=== PATIENT | male | born 1990 | race Caucasian/White ===

== ENCOUNTER 2020-05-08 08:01 | Emergency (ER) | payer OTHER, SELFPAY ==
[2020-05-08 08:07] VITALS: BP 127/77; BP 132/92; PULSE 81; PULSE 90; RESP 18; TEMP 36.7; O2SAT 95; BMI 45.0
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
[2020-05-08] MEDS: Cyclobenzaprine HCl 10 MG TABLET PO (08:25)
[2020-05-08 09:55] VITALS: BP 114/70; PULSE 84; RESP 16; O2SAT 98
== END 2020-05-08 09:58 | disposition home or self-care (01) ==
LOC: HO.ED 08:38
PROVIDERS: Emergency Provider Emergency Medicine
DX: S00.81XA Abrasion of other part of head, initial encounter (principal); S09.90XA Unspecified injury of head, initial encounter; S13.4XXA Sprain of ligaments of cervical spine, initial encounter; V43.62XA Car passenger injured in collision with other type car in traffic accident, initial encounter; Y93.89 Activity, other specified; Y92.414 Local residential or business street as the place of occurrence of the external cause; Y99.9 Unspecified external cause status
CPT/HCPCS: 70450; 71045; 72125; 99284

== ENCOUNTER 2020-07-31 08:44 | Outpatient (REF) | payer OTHER, SELFPAY | END 2020-07-31 08:45 | disposition home or self-care (01) | LOC: HO.LAB 08:44 | PROVIDERS: Visit Provider Internal Medicine | DX: Z20.822 Contact with and (suspected) exposure to COVID-19 (principal) | CPT/HCPCS: 36415; C9803; U0003; U0005 ==

== ENCOUNTER 2020-12-30 15:07 | Emergency (ER) | payer SELFPAY ==
--- NOTE | ~2020-12-30 | XR_ITS ---
EXAMINATION: XR FOOT, LEFT CLINICAL INFORMATION: Left foot pain. COMPARISON: None TECHNIQUE: 3 views of the left foot. FINDINGS: There is no fracture. No dislocation. No focal bone lesion or abnormal periosteal reaction. The joint spaces are normal. There is no soft tissue abnormality. There is a prominent contour of the posterior superior calcaneus, Latisha's deformity. No thickening of the Achilles tendon however is evident. There are small calcifications at the Achilles tendon insertion of the posterior calcaneus. XR/XR foot LT 2V IMPRESSION: 1. No acute abnormality. 2. Latisha's deformity of the calcaneus.
[2020-12-30 16:35] VITALS: BP 156/96; PULSE 77; RESP 18; TEMP 36.8; O2SAT 97; BMI 48.6
--- NOTE | 2020-12-30 17:02 | ED.LOWEXIN ---
HPI - Extremity Injury (Lower) General Chief Complaint: Extremity Injury, Lower Stated Complaint: feet pain Source: patient Mode of arrival: ambulatory Limitations: no limitations History of Present Illness HPI Narrative: 30-year-old male presents with left-sided foot pain for several days. States that it is difficult for him to bear weight, and that he has been limping. He did have right-sided foot pain for several weeks prior to this. He does have a reddened spot at the great toe hallux. He is morbidly obese, has not seen a medical provider in over 2 years since he moved from [place] to [place]. Does not report any other concerning symptoms. He does not report any injuries or falls, wounds, chest pain or pressure, palpitations, shortness of breath, shortness breath on exertion, abdominal pain, abdominal distention, fevers, chills, dysuria, hematuria, nausea, vomiting, diarrhea, or constipation. MD complaint: foot injury Onset (ago): day(s) Type of Injury: unknown Place: home Severity: moderate Severity scale (1-10): 7 Exacerbating factors: nothing Associated symptoms: swelling and able to partially bear weight Other symptoms: none Related Data Previous Rx's Medication Instructions Recorded cyclobenzaprine 10 mg tablet 10 mg PO TID PRN #14 tab 05/08/20 ibuprofen 600 mg tablet 600 mg PO Q6H PRN #30 tab 05/08/20 lidocaine 4 % topical patch 1 patch TOPICAL DAILY PRN #10 ea 05/08/20 ondansetron 4 mg disintegrating 4 mg PO Q8H PRN #20 tab 05/08/20 tablet prednisone 20 mg tablet 40 mg PO DAILY 5 Days #10 tab 12/30/20 Allergies Allergy/AdvReac Type Severity Reaction Status Date / Time Penicillins [PENICILLINS] Allergy Unknown SWELLING Verified 05/08/20 08:23 AND RASH PEANUT BUTTER Allergy Unknown HIVES Uncoded 02/15/20 17:25 SEAFOOD Allergy Unknown SWELLING Uncoded 02/15/20 17:25 AND RASH Review of Systems Review of Systems: Constitutional: No Fever, No Chills ENT/Mouth: No Ear Pain, No Hoarseness, No sore throat Eyes: No Eye Pain, No Swelling, No Redness, No Foreign Body Cardiovascular: No Chest Pain, No SOB Respiratory: No Cough, No Dyspnea Gastrointestinal: No Nausea, No Vomiting, No Diarrhea, No abdominal Pain Genitourinary: No Dysuria, No Hematuria Musculoskeletal: positive foot pain, No Myalgias, No Joint Swelling Skin: No Skin lacerations, No rash Neuro: No Weakness, No Numbness, No Paresthesias, No Loss of Consciousness, No Dizziness, No Headache Psych: No Anxiety/Panic, No Depression Heme/Lymph: no easy bruising, no Lymphadenopathy Endocrine: No Polyuria, No Polydipsia PMFSH Past Medical History Attestation statement: The following information was validated with the patient. Source: old records reviewed Medical History Asthma Social History Social History Substance Use Type: Marijuana Advance Directives: No Advance Directives Information Provided: No Physical Exam Vital Signs: Vital Signs: Last Vital Signs Temp 98.3 F 12/30/20 16:35 Pulse 70 12/30/20 18:55 Resp 18 12/30/20 18:55 BP 106/62 12/30/20 18:55 Pulse Ox 97 12/30/20 18:55 Body Mass Index 48.6 Appearance: Alert. Oriented X3. No acute distress. Eyes: Pupils equal, round and reactive to light. ENT: Pharynx normal. Neck: Normal inspection. Neck supple. CVS: Normal heart rate and rhythm. Pulses normal. Respiratory: No respiratory distress. Breath sounds normal. Abdomen: Soft and nontender. Skin: Skin warm and dry. Normal skin color. Normal skin turgor. Extremities: Bilateral lower extremity edema, full range of motion, reddened swollen hallux to the left foot. Neuro: No motor deficit. No sensory deficit. Course Course Course Narrative: 30-year-old male presents with left foot pain. X-rays are negative for acute findings. He does have a reddened and swollen hallux consistent with gout. Will order lab values and uric acid level. Uric acid level is elevated, will treat with prednisone and have patient follow-up with a primary care provider. Was given a list of providers to call to obtain care. patient verbalized understanding of and agrees to plan of care discharge home. MDM - Extremity Injury (Lower) MDM Narrative Medical decision making narrative: Gout Differential Diagnosis Differential diagnosis: Likely ankle sprain and strain, puncture wound of foot, fracture of toe and ankle fracture Medical Records Attestation: I reviewed the patient's medical records. Lab Data Attestation: I reviewed the patient's lab results. Result diagrams: 12/30/20 17:54 12/30/20 17:54 Labs: Lab Results 12/30/20 12/30/20 Range/Units 17:54 17:54 WBC 7.8 (4.8-10.8) X10*3/uL RBC 4.81 (4.60-5.80) X10*6/uL Hgb 14.0 (14.0-18.0) g/dl Hct 42.2 (42-52) % MCV 87.7 (80-98) fL MCH 29.1 (27.0-33.0) pg MCHC 33.2 (31.0-36.0) g/dl RDW 13.2 (11.0-16.0) % Plt Count 207 (160-400) X10*3/uL MPV 10.3 (9.4-12.4) fL Immature Gran % (Auto) 0.3 (0.0-0.4) % Neut % (Auto) 64.0 (45-73) % Lymph % (Auto) 23.7 (20-40) % [place] % (Auto) 8.7 (2-11) % Eos % (Auto) 2.8 (0-4) % Baso % (Auto) 0.5 (0-2) % Lymph # (Auto) 1.9 (1.2-4.9) X10*3/uL [place] # (Auto) 0.7 (0.1-1.2) X10*3/uL Eos # (Auto) 0.2 (0.0-0.4) X10*3/uL Baso # (Auto) 0.0 (0.0-0.2) X10*3/uL Abs Immat Gran (auto) 0.02 (0.00-0.03) X10*3/uL Absolute Neuts (auto) 5.0 (2.0-8.3) X10*3/uL Absolute Nucleated RBC 0.000 (0.0-0.012) X10*3/uL Nucleated RBC % (auto) 0.0 (0.0-0.2) /100WBC Sodium 142 (135-145) mmol/L Potassium 4.0 (3.3-5.1) mmol/L Chloride 107 (96-108) mmol/L Carbon Dioxide 28 (22-29) mmol/L Anion Gap 11 L (12-20) BUN 7 L (9-16) mg/dL Creatinine 0.95 (0.5-1.4) mg/dL Estim Creat Clear Calc 159.3 Estimated GFR > 60 Random Glucose 108 (60-115) mg/dL Uric Acid 8.4 H (3.4-7.0) mg/dL Calcium 8.7 (8.4-10.2) mg/dL Imaging Data Foot x-ray: Attestation: I personally reviewed and interpreted this imaging study as follows: Radiologist's impression: EXAMINATION: XR FOOT, LEFT CLINICAL INFORMATION: Left foot pain.? COMPARISON: None? TECHNIQUE: 3 views of the left foot. FINDINGS: There is no fracture. No dislocation. No focal bone lesion or abnormal periosteal reaction. The joint spaces are normal. There is no soft tissue abnormality. There is a prominent contour of the posterior superior calcaneus, Latisha's deformity. No thickening of the Achilles tendon however is evident. There are small calcifications at the Achilles tendon insertion of the posterior calcaneus. XR/XR foot LT 2V IMPRESSION: ? 1. No acute abnormality. 2. Latisha's deformity of the calcaneus. Discharge Plan Discharge Clinical Impression: Gout Qualifiers: Gout site: toe Gout etiology: unspecified cause Chronicity: acute Laterality: left Qualified Code(s): M10.9 - Gout, unspecified Patient Disposition: Home, Self-Care Instructions: Gout (ED) Additional Instructions: You were evaluated for foot pain. Your uric acid levels are elevated which indicates gout. Please take prednisone for the next 5 days. You must follow-up with the primary care physician. Please call and find one. Thank you for choosing this emergency department for evaluation. Please follow-up with primary care physician as needed. Return to the emergency department for any new, concerning, or worsening symptoms. Prescriptions: New prednisone 20 mg tablet 40 mg PO DAILY 5 Days Qty: 10 RF: 0 No Action cyclobenzaprine 10 mg tablet 10 mg PO TID PRN (Reason: muscle spasm) Qty: 14 RF: 0 lidocaine 4 % adhesive patch,medicated 1 patch topical DAILY PRN (Reason: pain) Qty: 10 RF: 0 ibuprofen 600 mg tablet 600 mg PO Q6H PRN (Reason: pain) Qty: 30 RF: 0 ondansetron 4 mg tablet,disintegrating 4 mg PO Q8H PRN (Reason: nausea and vomiting) Qty: 20 RF: 0 Stand Alone Forms: Work/School Release Interventions: ED Discharge Assessment Last Done: 12/30/20 19:44 Discharge Date/Time: 12/30/20 19:46
[2020-12-30 18:00] LABS: MANUAL DIFF FLAG NO
[2020-12-30 18:03] LABS: Basophils Percent Auto 0.5 % (0-2); Eosinophils Absolute Auto 0.2 X10*3/uL (0.0-0.4); Eosinophils Percent Auto 2.8 % (0-4); Hematocrit 42.2 % (42-52); Imm Gran Abs Auto 0.02 X10*3/uL (0.00-0.03); Imm Gran Pct Auto 0.3 % (0.0-0.4); Lymphocytes Absolute Auto 1.9 X10*3/uL (1.2-4.9); Lymphocytes Percent Auto 23.7 % (20-40); Mean Corpuscular HGB Conc 33.2 g/dl (31.0-36.0); Mean Corpuscular Hemoglobin 29.1 pg (27.0-33.0); Mean Corpuscular Volume 87.7 fL (80-98); Mean Platelet Volume 10.3 fL (9.4-12.4); Monocytes Absolute Auto 0.7 X10*3/uL (0.1-1.2); Monocytes Percent Auto 8.7 % (2-11); Platelet Count 207 X10*3/uL (160-400); Red Blood Count 4.81 X10*6/uL (4.60-5.80); Red Cell Distribution Width 13.2 % (11.0-16.0); White Blood Count 7.8 X10*3/uL (4.8-10.8)
[2020-12-30 18:22] LABS: Anion Gap 11 (12-20); Blood Urea Nitrogen 7 mg/dL (9-16); Calcium 8.7 mg/dL (8.4-10.2); Carbon Dioxide 28 mmol/L (22-29); Chloride 107 mmol/L (96-108); Creatinine Clr Calc Pharmacy 159.3; Estimated Glomerular Filt Rate > 60; Glucose Random 108 mg/dL (60-115); Sodium 142 mmol/L (135-145)
[2020-12-30 18:35] LABS: Uric Acid 8.4 mg/dL (3.4-7.0)
[2020-12-30 18:55] VITALS: BP 106/62; PULSE 70; RESP 18; O2SAT 97
[2020-12-30] MEDS: predniSONE 20 MG TABLET 40 MG PO (19:38)
== END 2020-12-30 19:46 | disposition home or self-care (01) ==
PROVIDERS: Nurse Practitioner Family; Emergency Provider Internal Medicine
DX: M10.9 Gout, unspecified (principal); M79.672 Pain in left foot
CPT/HCPCS: 36415; 73620; 80048; 84550; 85025; 99283; 99284

== ENCOUNTER 2021-05-26 14:37 | Emergency (ER) | payer MEDICAID, SELFPAY ==
--- NOTE | ~2021-05-26 | XR_ITS ---
EXAMINATION: XR CHEST CLINICAL INFORMATION: Shortness of breath COMPARISON: 05/08/2020 TECHNIQUE: Frontal view of the chest was obtained. FINDINGS: No significant abnormality is noted involving the heart, lungs, mediastinum, bony thorax or soft tissues. XR/XR chest 1V IMPRESSION: Unremarkable examination.
--- NOTE | ~2021-05-26 | US_ITS ---
EXAMINATION: US VENOUS ULTRASOUND WITH DOPPLER LOWER EXTREMITY, RIGHT CLINICAL INFORMATION: Swollen leg, calf tenderness COMPARISON: None TECHNIQUE: Ultrasound of the deep veins is performed from the hip to the calf with compression sonography and color and pulse Doppler assessment. Spectral analysis with color-flow imaging is performed. FINDINGS: There is normal venous compression and respiratory variation and augmented flow. The visualized common femoral vein, superficial femoral vein, profunda femoral vein, popliteal vein, and the trifurcation region shows no evidence of deep venous thrombosis. There is no significant popliteal fossa cyst. If the patient's symptoms persist, followup ultrasound in 5 days 7 days might be of value to exclude proximal propagation from a non-visualized calf vein. US/US venous duplex LE RT IMPRESSION: No DVT demonstrated in the right lower extremity.
[2021-05-26 19:54] VITALS: PULSE 94; RESP 20; TEMP 36.9; O2SAT 98; BMI 50.8
[2021-05-26 20:24] LABS: COVID-19 Test Negative (Negative)
--- NOTE | 2021-05-26 21:14 | ED_ITS ---
HPI - URI/Sore Throat General Chief Complaint: Upper Respiratory Symptoms Stated Complaint: SOB Time Seen by Provider: 05/26/21 21:13 Source: patient Mode of arrival: ambulatory Limitations: no limitations History of Present Illness HPI Narrative: 30-year-old male past medical history significant for asthma presents to the emergency department with complaints of shortness of breath, cough, sore throat X3 weeks prgressivly worsening and right foot swelling X1 week. Patient tells me that he has noted that he becomes short of breath quickly with exertion, especially going up and down stairs. He also has noticed that over the past 3 weeks he has been having a productive cough of green thick sputum. He also notes that over the past week his right lower extremity has become very swollen, and he reports associated calf tenderness. Patient denies chest pain, fevers, chills, nausea, vomiting, abdominal pain, weakness. Vaccinated against COVID-19. MD elicited complaint: cough and sore throat Pertinent past history: other (Morbid obesity) Onset (ago): week(s) (3) Consistency: constant Severity: severe Description of mucous: green Able to tolerate fluids by mouth: Yes Exacerbating factors: exertion Relieving factors: nothing Associated symptoms: sore throat, cough and shortness of breath Treatments prior to arrival: none Related Data Previous Rx's Medication Instructions Recorded cyclobenzaprine 10 mg tablet 10 mg PO TID PRN #14 tab 05/08/20 ibuprofen 600 mg tablet 600 mg PO Q6H PRN #30 tab 05/08/20 lidocaine 4 % topical patch 1 patch TOPICAL DAILY PRN #10 ea 05/08/20 ondansetron 4 mg disintegrating 4 mg PO Q8H PRN #20 tab 05/08/20 tablet prednisone 20 mg tablet 40 mg PO DAILY 5 Days #10 tab 12/30/20 azithromycin 250 mg tablet See Rx Instructions .ROUTE 05/26/21 .COMPLEX #6 tab benzonatate 100 mg capsule 100 mg PO BID PRN #14 cap 05/26/21 prednisone 20 mg tablet 40 mg PO DAILY 5 Days #10 tab 05/26/21 Allergies Allergy/AdvReac Type Severity Reaction Status Date / Time Penicillins [PENICILLINS] Allergy Unknown SWELLING Verified 05/26/21 19:53 AND RASH PEANUT BUTTER Allergy Unknown HIVES Uncoded 02/15/20 17:25 SEAFOOD Allergy Unknown SWELLING Uncoded 02/15/20 17:25 AND RASH Review of Systems Review of Systems: Constitutional : No Weight loss, No Fever, No Chills, No Fatigue, No Malaise ENT/Mouth : No sore throat, No Rhinorrhea Eyes: No Eye Pain, No Swelling, No Redness Cardiovascular : No Chest Pain, No SOB, + Dyspnea on Exertion, No Orthopnea, No Edema, No Palpitations Respiratory : + Cough, + Sputum, No Wheezing Gastrointestinal : No Nausea, No Vomiting, No Diarrhea, No Constipation, No ab dominal Pain, No Hematochezia, No Melena Genitourinary : No Dysuria, No Urinary Frequency, No Hematuria, Musculoskeletal : No joint pain, No Myalgias, No Joint Swelling, +calp pain Skin : No Skin Lesions, No rash Neuro : No Weakness, No Numbness, No Dizziness, No Headache All other systems reviewed and are negative Yes all other systems are reviewed and are negative [facility] Past Medical History Attestation statement: The following information was validated with the patient. Source: old records reviewed and nursing notes reviewed Medical History Asthma Social History Social History Substance Use Type: Marijuana Advance Directives: No Advance Directives Information Provided: No Physical Exam Vital Signs: Vital Signs: Last Vital Signs Temp 98.5 F 05/26/21 19:54 Pulse 80 05/26/21 22:57 Resp 16 05/26/21 22:57 BP 139/81 05/26/21 22:57 Pulse Ox 94 05/26/21 22:57 BMI result Body Mass Index 50.8 VSS Appearance: Alert.? Oriented X3.? No acute distress.? Head: Normocephalic, atraumatic, no step-offs or deformities Eyes: Pupils equal, round and reactive to light.? ENT: Pharynx normal.? Neck: Normal inspection.? Neck supple.? CVS: Normal heart rate and rhythm.? Pulses normal.? Respiratory: No respiratory distress.? +diminished breath sounds bilaterally Abdomen: Soft and nontender.? Skin: Skin warm and dry.? Normal skin color.? Normal skin turgor.? Extremities: +3+ nonpitting edema from knee down b/l ?+right sided calf pain to palpation + sterling on right negative on left . 5/5 strength to bilateral upper and lower extremities (pictures below) Back: No midline tenderness, no C-spine tenderness, full range of motion, no CVA tenderness bilaterally Neuro: Oriented X 3.? No motor deficit.? No sensory deficit. Course Course Course Narrative: looked at patients right leg and agrees that right lower extremity Is not celulitis, it appears to be chronic in nature. Reevaluation(s) Reevaluation #1: COVID negative. CBC within normal limits. Chemistry with no acute electrolyte abnormalities. BNP negative. Xray negative. US duplex negative no DVT Shortness of breath could be secondary to patient's weight. However since he is also having a cough that is productive in nature I will treat him for bacterial bronchitis. Time: 23:40 MDM - URI/Sore Throat MDM Narrative Medical decision making narrative: 2135 30 yo male pmhx asthma presents to ED with productive cough of thick green sputum, SOB on exertion X3 weeks and RLE swelling X1 week. Vaccinated against COVID-19 Upon physical examination there is 3+ nonpitting edema from knee down. There is right sided calf pain to palpation + sterling on right negative on left . 5/5 strength to bilateral upper and lower extremities. Lungs with diminished breath sounds bilaterally. Regular rate and rhythm. No focal neuro deficits. Plan at this time is to obtain basic labs, BNP, chest x-ray, right lower extrem ity duplex. Will rule out DVT, and pneumonia. Medical Records Attestation: I reviewed the patient's medical records. Lab Data Attestation: I reviewed the patient's lab results. Result diagrams: 05/26/21 23:15 05/26/21 22:52 Labs: Lab Results 05/26/21 05/26/21 05/26/21 Range/Units 20:03 22:52 22:52 WBC (4.8-10.8) X10*3/uL RBC (4.60-5.80) X10*6/uL Hgb (14.0-18.0) g/dl Hct (42.0-52.0) % MCV (80.0-98.0) fL MCH (27.0-33.0) pg MCHC (31.0-36.0) g/dl RDW (11.0-16.0) % Plt Count (160-400) X10*3/uL MPV (9.4-12.4) fL Immature Gran % (Auto) (0.0-0.4) % Neut % (Auto) (45-73) % Lymph % (Auto) (20-40) % [place] % (Auto) (2-11) % Eos % (Auto) (0-4) % Baso % (Auto) (0-2) % Lymph # (Auto) (1.2-4.9) X10*3/uL [place] # (Auto) (0.1-1.2) X10*3/uL Eos # (Auto) (0.0-0.4) X10*3/uL Baso # (Auto) (0.0-0.2) X10*3/uL Abs Immat Gran (auto) (0.00-0.03) X10*3/uL Absolute Neuts (auto) (2.0-8.3) x10*3/uL Absolute Nucleated RBC (0.0-0.012) X10*3/uL Nucleated RBC % (auto) (0.0-0.2) /100WBC Sodium 139 (135-145) mmol/L Potassium 4.0 (3.3-5.1) mmol/L Chloride 103 (96-108) mmol/L Carbon Dioxide 28 (22-29) mmol/L Anion Gap 12 (12-20) BUN 10 (9-16) mg/dL Creatinine 0.88 (0.5-1.4) mg/dL Estim Creat Clear Calc 171.2 Estimated GFR > 60 Random Glucose 97 (60-115) mg/dL Calcium 9.5 D (8.4-10.2) mg/dL Magnesium 2.1 (1.6-2.6) mg/dL Total Bilirubin 0.8 (0.0-1.0) mg/dL AST 26 (5-37) U/L ALT 33 (0-40) U/L Alkaline Phosphatase 75 (39-117) U/L B-Natriuretic Peptide < 10 (<100) pg/mL Total Protein 8.3 H (6.5-8.0) g/dL Albumin 4.0 (3.5-5.0) g/dL COVID-19 (MONIKA) Negative (Negative) COVID-19 Clin Com See Note 05/26/21 Range/Units 23:15 WBC 8.0 (4.8-10.8) X10*3/uL RBC 4.94 (4.60-5.80) X10*6/uL Hgb 14.2 (14.0-18.0) g/dl Hct 42.9 (42.0-52.0) % MCV 86.8 (80.0-98.0) fL MCH 28.7 (27.0-33.0) pg MCHC 33.1 (31.0-36.0) g/dl RDW 12.9 (11.0-16.0) % Plt Count 268 (160-400) X10*3/uL MPV 10.0 (9.4-12.4) fL Immature Gran % (Auto) 0.4 (0.0-0.4) % Neut % (Auto) 62.7 (45-73) % Lymph % (Auto) 21.5 (20-40) % [place] % (Auto) 9.7 (2-11) % Eos % (Auto) 5.1 H (0-4) % Baso % (Auto) 0.6 (0-2) % Lymph # (Auto) 1.7 (1.2-4.9) X10*3/uL [place] # (Auto) 0.8 (0.1-1.2) X10*3/uL Eos # (Auto) 0.4 (0.0-0.4) X10*3/uL Baso # (Auto) 0.1 (0.0-0.2) X10*3/uL Abs Immat Gran (auto) 0.03 (0.00-0.03) X10*3/uL Absolute Neuts (auto) 5.0 (2.0-8.3) x10*3/uL Absolute Nucleated RBC 0.000 (0.0-0.012) X10*3/uL Nucleated RBC % (auto) 0.0 (0.0-0.2) /100WBC Sodium (135-145) mmol/L Potassium (3.3-5.1) mmol/L Chloride (96-108) mmol/L Carbon Dioxide (22-29) mmol/L Anion Gap (12-20) BUN (9-16) mg/dL Creatinine (0.5-1.4) mg/dL Estim Creat Clear Calc Estimated GFR Random Glucose (60-115) mg/dL Calcium (8.4-10.2) mg/dL Magnesium (1.6-2.6) mg/dL Total Bilirubin (0.0-1.0) mg/dL AST (5-37) U/L ALT (0-40) U/L Alkaline Phosphatase (39-117) U/L B-Natriuretic Peptide (<100) pg/mL Total Protein (6.5-8.0) g/dL Albumin (3.5-5.0) g/dL COVID-19 (MONIKA) (Negative) COVID-19 Clin Com Imaging Data Chest x-ray: Attestation: I personally reviewed and interpreted this imaging study as follows: Radiologist's impression: FINDINGS: No significant abnormality is noted involving the heart, lungs, mediastinum, bony thorax or soft tissues. XR/XR chest 1V IMPRESSION: Unremarkable examination. Venous US: Attestation: I personally reviewed and interpreted this imaging study as follows: Radiologist's impression: FINDINGS: There is normal venous compression and respiratory variation and augmented flow. The visualized common femoral vein, superficial femoral vein, profunda femoral vein, popliteal vein, and the trifurcation region shows no evidence of deep venous thrombosis. There is no significant popliteal fossa cyst. If the patient's symptoms persist, followup ultrasound in 5 days 7 days might be of value to exclude proximal propagation from a non-visualized calf vein. US/US venous duplex LE RT IMPRESSION: No DVT demonstrated in the right lower extremity. Critical Care Time Critical Care Time Critical Care Time: No Discharge Plan Discharge Clinical Impression: Upper respiratory infection, Bronchitis Patient Disposition: Home, Self-Care Instructions: Acute Bronchitis (ED) Additional Instructions: Take your medications as prescribed. If you were prescribed antibiotics today, it is important that you take your medication to their entirety, do not skip any doses, do not finish them early. Follow-up with your primary care provider this week. If you don't have one it is important you find one. Return to the emergency department with new or worsening symptoms. In case of emergency call 911 Prescriptions: New azithromycin 250 mg tablet See Rx Instructions .ROUTE .COMPLEX Qty: 6 RF: 0 prednisone 20 mg tablet 40 mg PO DAILY 5 Days Qty: 10 RF: 0 benzonatate 100 mg capsule 100 mg PO BID PRN (Reason: cough) Qty: 14 RF: 0 No Action cyclobenzaprine 10 mg tablet 10 mg PO TID PRN (Reason: muscle spasm) Qty: 14 RF: 0 lidocaine 4 % adhesive patch,medicated 1 patch topical DAILY PRN (Reason: pain) Qty: 10 RF: 0 ibuprofen 600 mg tablet 600 mg PO Q6H PRN (Reason: pain) Qty: 30 RF: 0 ondansetron 4 mg tablet,disintegrating 4 mg PO Q8H PRN (Reason: nausea and vomiting) Qty: 20 RF: 0 prednisone 20 mg tablet 40 mg PO DAILY 5 Days Qty: 10 RF: 0 Referrals: Physician,None [Primary Care Provider] - 2 days Stand Alone Forms: Work/School Release
--- NOTE | 2021-05-26 22:55 | PC.NURSE ---
pt sitting at edge of bed speaking in full clear sentnces, ls clear and = bilat. radial pulase is string and regular, awaiting lab draw.
[2021-05-26 22:57] VITALS: BP 139/81; PULSE 80; RESP 16; O2SAT 94
[2021-05-26 23:19] LABS: Alanine Aminotransferase 33 U/L (0-40); Aspartate Amino Transferase 26 U/L (5-37); Magnesium 2.1 mg/dL (1.6-2.6)
[2021-05-26 23:23] LABS: B Type Natriuretic Peptide < 10 pg/mL (<100)
[2021-05-26 23:25] LABS: MANUAL DIFF FLAG NO
[2021-05-26 23:27] LABS: Basophils Absolute Auto 0.1 X10*3/uL (0.0-0.2); Basophils Percent Auto 0.6 % (0-2); Eosinophils Absolute Auto 0.4 X10*3/uL (0.0-0.4); Eosinophils Percent Auto 5.1 % (0-4); Hematocrit 42.9 % (42.0-52.0); Hemoglobin 14.2 g/dl (14.0-18.0); Imm Gran Abs Auto 0.03 X10*3/uL (0.00-0.03); Imm Gran Pct Auto 0.4 % (0.0-0.4); Lymphocytes Absolute Auto 1.7 X10*3/uL (1.2-4.9); Lymphocytes Percent Auto 21.5 % (20-40); Mean Corpuscular HGB Conc 33.1 g/dl (31.0-36.0); Mean Corpuscular Hemoglobin 28.7 pg (27.0-33.0); Mean Corpuscular Volume 86.8 fL (80.0-98.0); Monocytes Absolute Auto 0.8 X10*3/uL (0.1-1.2); Monocytes Percent Auto 9.7 % (2-11); Neutrophils Percent Auto 62.7 % (45-73); Platelet Count 268 X10*3/uL (160-400); Red Blood Count 4.94 X10*6/uL (4.60-5.80); Red Cell Distribution Width 12.9 % (11.0-16.0)
[2021-05-26 23:52] LABS: Anion Gap 12 (12-20); Carbon Dioxide 28 mmol/L (22-29); Chloride 103 mmol/L (96-108); Sodium 139 mmol/L (135-145)
[2021-05-26 23:53] LABS: Bilirubin Total 0.8 mg/dL (0.0-1.0); Blood Urea Nitrogen 10 mg/dL (9-16); Calcium 9.5 mg/dL (8.4-10.2); Creatinine Clr Calc Pharmacy 171.2; Estimated Glomerular Filt Rate > 60; Glucose Random 97 mg/dL (60-115)
[2021-05-26 23:54] LABS: Alkaline Phosphatase 75 U/L (39-117); Total Protein 8.3 g/dL (6.5-8.0)
== END 2021-05-27 00:24 | disposition home or self-care (01) ==
PROVIDERS: Physician Assistant; Emergency Provider Emergency Medicine Emergency Medical Services
DX: J06.9 Acute upper respiratory infection, unspecified (principal); J40 Bronchitis, not specified as acute or chronic; R60.0 Localized edema; J45.909 Unspecified asthma, uncomplicated; Z20.822 Contact with and (suspected) exposure to COVID-19
CPT/HCPCS: 36415; 71045; 80053; 83735; 83880; 85025; 87635; 93971; 99283; 99284

== ENCOUNTER 2021-08-03 21:03 | Emergency (ER) | payer MEDICAID, SELFPAY ==
--- NOTE | ~2021-08-03 | XR_ITS ---
EXAMINATION: XR CHEST CLINICAL INFORMATION: Shortness of breath COMPARISON: Previous chest x-ray most recent April 2021 TECHNIQUE: 2 views of the chest were obtained. FINDINGS: The cardiac and mediastinal contours are stable. The lungs are clear. There is no pleural effusion or pneumothorax. There is a left cervical rib. Bony structures are unremarkable. XR/XR chest 2V IMPRESSION: No evidence for acute disease in the chest.
--- NOTE | 2021-08-03 21:06 | ECG_ITS ---
Test Reason : CHEST PAIN Blood Pressure : / mmHG Vent. Rate : 092 BPM Atrial Rate : 092 BPM P-R Int : 132 ms QRS Dur : 106 ms QT Int : 346 ms P-R-T Axes : 060 030 021 degrees QTc Int : 427 ms Normal sinus rhythm Normal ECG No previous ECGs available Referred By: Generic ED Physician Electronically Signed By:DARWIN RIVER MD
[2021-08-03 21:23] LABS: MANUAL DIFF FLAG NO
[2021-08-03 21:24] LABS: Basophils Percent Auto 0.4 % (0-2); Eosinophils Absolute Auto 0.3 X10*3/uL (0.0-0.4); Eosinophils Percent Auto 3.6 % (0-4); Hematocrit 43.4 % (42.0-52.0); Hemoglobin 14.4 g/dl (14.0-18.0); Imm Gran Abs Auto 0.02 X10*3/uL (0.00-0.03); Imm Gran Pct Auto 0.2 % (0.0-0.4); Lymphocytes Absolute Auto 1.8 X10*3/uL (1.2-4.9); Lymphocytes Percent Auto 19.3 % (20-40); Mean Corpuscular HGB Conc 33.2 g/dl (31.0-36.0); Mean Corpuscular Hemoglobin 27.8 pg (27.0-33.0); Mean Corpuscular Volume 83.8 fL (80.0-98.0); Mean Platelet Volume 10.2 fL (9.4-12.4); Monocytes Percent Auto 10.2 % (2-11); Neutrophils Absolute Auto 6.2 x10*3/uL (2.0-8.3); Neutrophils Percent Auto 66.3 % (45-73); Platelet Count 230 X10*3/uL (160-400); Red Blood Count 5.18 X10*6/uL (4.60-5.80); Red Cell Distribution Width 13.9 % (11.0-16.0); White Blood Count 9.4 X10*3/uL (4.8-10.8)
[2021-08-03 21:41] VITALS: BP 133/66; PULSE 91; RESP 18; TEMP 36.8; O2SAT 96; BMI 54.8
[2021-08-03 21:43] LABS: Alanine Aminotransferase 30 U/L (0-40); Albumin Level 4.1 g/dL (3.5-5.0); Alkaline Phosphatase 70 U/L (39-117); Anion Gap 12 (12-20); Aspartate Amino Transferase 22 U/L (5-37); Bilirubin Total 1.1 mg/dL (0.0-1.0); Blood Urea Nitrogen 9 mg/dL (9-16); Calcium 9.7 mg/dL (8.4-10.2); Carbon Dioxide 29 mmol/L (22-29); Chloride 102 mmol/L (96-108); Estimated Glomerular Filt Rate > 60; Glucose Random 135 mg/dL (60-115); Potassium 4.1 mmol/L (3.3-5.1); Sodium 139 mmol/L (135-145); Total Protein 7.7 g/dL (6.5-8.0)
[2021-08-03 21:45] LABS: Troponin-I High Sensitivity 3.7 ng/L (<3.5-35.0)
[2021-08-03 22:17] LABS: COVID-19 Test Negative (Negative); IDNOW Serial# 08D9AD1C
--- NOTE | 2021-08-03 23:46 | ED_ITS ---
HPI - SOB/Dyspnea General Chief Complaint: Chest Pain Stated Complaint: chest pain, asthma Time Seen by Provider: 08/03/21 23:22 Source: patient Mode of arrival: ambulatory Limitations: no limitations History of Present Illness HPI Narrative: Patient with history of asthma obesity weighing about 350 lb comes here for increased shortness of breath for last few months with increased sleepiness during daytime snores in the night. Patient was seen here in April last year and prednisone and Zithromax was given patient feel wheezing sometimes and chest wall pain with breathing. Occasionally patient has dry cough Related Data Previous Rx's Medication Instructions Recorded cyclobenzaprine 10 mg tablet 10 mg PO TID PRN #14 tab 05/08/20 ibuprofen 600 mg tablet 600 mg PO Q6H PRN #30 tab 05/08/20 lidocaine 4 % topical patch 1 patch TOPICAL DAILY PRN #10 ea 05/08/20 ondansetron 4 mg disintegrating 4 mg PO Q8H PRN #20 tab 05/08/20 tablet azithromycin 250 mg tablet See Rx Instructions .ROUTE 05/27/21 .COMPLEX #6 tab benzonatate 100 mg capsule 100 mg PO Q6H PRN #14 cap 05/27/21 prednisone 20 mg tablet 40 mg PO DAILY 5 Days #10 tab 05/27/21 albuterol sulfate 90 mcg/actuation 2 puff INHALATION Q4-6H PRN #8.5 g 08/03/21 aerosol inhaler (ProAir HFA) Allergies Allergy/AdvReac Type Severity Reaction Status Date / Time Penicillins [PENICILLINS] Allergy Unknown SWELLING Verified 08/03/21 21:41 AND RASH PEANUT BUTTER Allergy Unknown HIVES Uncoded 02/15/20 17:25 SEAFOOD Allergy Unknown SWELLING Uncoded 02/15/20 17:25 AND RASH Review of Systems Review of Systems: Yes all other systems are reviewed and are negative [facility] Past Medical History Medical History Asthma Social History Social History Substance Use Type: Marijuana Advance Directives: No Advance Directives Information Provided: No Physical Exam Vital Signs: Vital Signs: Last Vital Signs Temp 98.3 F 08/03/21 21:41 Pulse 91 08/03/21 21:41 Resp 18 08/03/21 21:41 BP 133/66 08/03/21 21:41 Pulse Ox 96 08/03/21 21:41 BMI result Body Mass Index 54.8 Appearance: Alert. Oriented X3. No acute distress. Morbid obese person with short neck Eyes: No pallor or icterus ENT: Pharynx normal. Oral Mucosa moist Neck: Normal inspection. Neck supple. CVS: Normal heart rate and rhythm. Pulses normal. Respiratory: No respiratory distress. Equal air entry bilateral, decreased air entry bilateral prolonged expiration Abdomen: Soft and nontender. Bowel sounds are present, no mass palpable, no CVA tenderness Skin: Skin warm and dry. Normal skin color. Normal skin turgor. Extremities: 2+ lower extremity edema. No calf tenderness Neuro: Oriented X 3. No motor deficit. MDM - SOB/Dyspnea Lab Data Result diagrams: 08/03/21 21:15 08/03/21 21:15 Labs: Lab Results 08/03/21 08/03/21 08/03/21 Range/Units 21:15 21:15 21:15 WBC 9.4 (4.8-10.8) X10*3/uL RBC 5.18 (4.60-5.80) X10*6/uL Hgb 14.4 (14.0-18.0) g/dl Hct 43.4 (42.0-52.0) % MCV 83.8 (80.0-98.0) fL MCH 27.8 (27.0-33.0) pg MCHC 33.2 (31.0-36.0) g/dl RDW 13.9 (11.0-16.0) % Plt Count 230 (160-400) X10*3/uL MPV 10.2 (9.4-12.4) fL Immature Gran % (Auto) 0.2 (0.0-0.4) % Neut % (Auto) 66.3 (45-73) % Lymph % (Auto) 19.3 L (20-40) % [place] % (Auto) 10.2 (2-11) % Eos % (Auto) 3.6 (0-4) % Baso % (Auto) 0.4 (0-2) % Lymph # (Auto) 1.8 (1.2-4.9) X10*3/uL [place] # (Auto) 1.0 (0.1-1.2) X10*3/uL Eos # (Auto) 0.3 (0.0-0.4) X10*3/uL Baso # (Auto) 0.0 (0.0-0.2) X10*3/uL Abs Immat Gran (auto) 0.02 (0.00-0.03) X10*3/uL Absolute Neuts (auto) 6.2 (2.0-8.3) x10*3/uL Absolute Nucleated RBC 0.000 (0.0-0.012) X10*3/uL Nucleated RBC % (auto) 0.0 (0.0-0.2) /100WBC Sodium 139 (135-145) mmol/L Potassium 4.1 (3.3-5.1) mmol/L Chloride 102 (96-108) mmol/L Carbon Dioxide 29 (22-29) mmol/L Anion Gap 12 (12-20) BUN 9 (9-16) mg/dL Creatinine 0.84 (0.5-1.4) mg/dL Estim Creat Clear Calc TNP Estimated GFR > 60 Random Glucose 135 H D (60-115) mg/dL Calcium 9.7 (8.4-10.2) mg/dL Total Bilirubin 1.1 H (0.0-1.0) mg/dL AST 22 (5-37) U/L ALT 30 (0-40) U/L Alkaline Phosphatase 70 (39-117) U/L Troponin I High Sens 3.7 (<3.5-35.0) ng/L Total Protein 7.7 (6.5-8.0) g/dL Albumin 4.1 (3.5-5.0) g/dL COVID-19 (MONIKA) (Negative) COVID-19 Clin Com 08/03/21 Range/Units 21:47 WBC (4.8-10.8) X10*3/uL RBC (4.60-5.80) X10*6/uL Hgb (14.0-18.0) g/dl Hct (42.0-52.0) % MCV (80.0-98.0) fL MCH (27.0-33.0) pg MCHC (31.0-36.0) g/dl RDW (11.0-16.0) % Plt Count (160-400) X10*3/uL MPV (9.4-12.4) fL Immature Gran % (Auto) (0.0-0.4) % Neut % (Auto) (45-73) % Lymph % (Auto) (20-40) % [place] % (Auto) (2-11) % Eos % (Auto) (0-4) % Baso % (Auto) (0-2) % Lymph # (Auto) (1.2-4.9) X10*3/uL [place] # (Auto) (0.1-1.2) X10*3/uL Eos # (Auto) (0.0-0.4) X10*3/uL Baso # (Auto) (0.0-0.2) X10*3/uL Abs Immat Gran (auto) (0.00-0.03) X10*3/uL Absolute Neuts (auto) (2.0-8.3) x10*3/uL Absolute Nucleated RBC (0.0-0.012) X10*3/uL Nucleated RBC % (auto) (0.0-0.2) /100WBC Sodium (135-145) mmol/L Potassium (3.3-5.1) mmol/L Chloride (96-108) mmol/L Carbon Dioxide (22-29) mmol/L Anion Gap (12-20) BUN (9-16) mg/dL Creatinine (0.5-1.4) mg/dL Estim Creat Clear Calc Estimated GFR Random Glucose (60-115) mg/dL Calcium (8.4-10.2) mg/dL Total Bilirubin (0.0-1.0) mg/dL AST (5-37) U/L ALT (0-40) U/L Alkaline Phosphatase (39-117) U/L Troponin I High Sens (<3.5-35.0) ng/L Total Protein (6.5-8.0) g/dL Albumin (3.5-5.0) g/dL COVID-19 (MONIKA) Negative (Negative) COVID-19 Clin Com See Note Discharge Plan Discharge Clinical Impression: Sleep apnea, obstructive Patient Disposition: Home, Self-Care Instructions: Asthma (ED), Sleep Apnea (DC) Additional Instructions: Clinically you have obstructive sleep apnea with asthma Try to reduce weight follow up with lung specialist for sleep studies and CPAP Prescriptions: New albuterol sulfate [ProAir HFA] 90 mcg/actuation HFA aerosol inhaler 2 puff inhalation Q4-6H PRN (Reason: Wheezing) Qty: 8.5 0RF No Action cyclobenzaprine 10 mg tablet 10 mg PO TID PRN (Reason: muscle spasm) Qty: 14 0RF lidocaine 4 % adhesive patch,medicated 1 patch topical DAILY PRN (Reason: pain) Qty: 10 0RF Rx Instructions: may leave on for up to 12 hrs ibuprofen 600 mg tablet 600 mg PO Q6H PRN (Reason: pain) Qty: 30 0RF ondansetron 4 mg tablet,disintegrating 4 mg PO Q8H PRN (Reason: nausea and vomiting) Qty: 20 0RF azithromycin 250 mg tablet See Rx Instructions .ROUTE .COMPLEX Qty: 6 0RF Rx Instructions: For 250 mg dose pack: take 500 mg today (day 1), then 250 mg for 4 days (days 2-5) prednisone 20 mg tablet 40 mg PO DAILY 5 Days Qty: 10 0RF benzonatate 100 mg capsule 100 mg PO Q6H PRN (Reason: cough) Qty: 14 0RF Referrals: Gabino Taylor MD [Physician] - 1 week Interventions: ED Discharge Assessment Last Done: 08/04/21 00:24 Discharge Date/Time: 08/04/21 00:25
== END 2021-08-04 00:25 | disposition home or self-care (01) ==
LOC: HO.ED 23:53
PROVIDERS: Emergency Provider Internal Medicine
DX: G47.33 Obstructive sleep apnea (adult) (pediatric) (principal); R07.9 Chest pain, unspecified; Z20.822 Contact with and (suspected) exposure to COVID-19; Z79.899 Other long term (current) drug therapy
CPT/HCPCS: 36415; 71046; 80053; 84484; 85025; 87635; 93005; 99283

== ENCOUNTER 2021-08-15 17:30 | Emergency (ER) | payer MEDICAID, SELFPAY ==
--- NOTE | ~2021-08-15 | XR_ITS ---
EXAMINATION: XR TIBIA AND FIBULA, LEFT CLINICAL INFORMATION: Concern for osteomyelitis. COMPARISON: None TECHNIQUE: AP and lateral views of the left tibia and fibula were obtained. FINDINGS: No focal bone lesion or abnormal periosteal reaction. No radiographic evidence for osteomyelitis. No fracture. Mild degenerative change of the knee joint and the ankle joint. XR/XR tibia fibula LT 2V IMPRESSION: No acute abdomen only. No radiographic evidence for osteomyelitis
[2021-08-15 17:47] VITALS: BP 144/78; PULSE 103; RESP 18; TEMP 36.8; O2SAT 96; BMI 54.7
--- NOTE | 2021-08-15 18:05 | ED_ITS ---
HPI - Skin/Abscess/Foreign Bdy General Chief complaint: Skin/Abscess/Foreign Body Stated complaint: abscess popped/infection Time Seen by Provider: 08/15/21 17:55 Source: patient Mode of arrival: ambulatory Limitations: no limitations History of Present Illness HPI narrative: Patient is a 30 year old male presenting to the emergency department today with a possible infection of his left lower leg. Patient states that a week ago, he noticed an abscess on his left lower leg. He states that a few days ago, it popped and leaked fluid everywhere. Now he states that it hasn't gotten better over the last few days. Patient denies any dizziness, lightheadedness, abdominal pain, nausea, vomiting, fever, chills, blurry vision, double vision, loss of vision, chest pain, difficulty breathing, shortness of breath, back pain, night sweats, pain with urination, increased urinary frequency, increased urinary urgency, blood in his urine or stool, syncope or a near syncopal episode, recent trauma or falls, bowel incontinence, bladder incontinence, bowel retention, bladder retention, or any other complaints at this time. Patient denies any history of diabetes. Patient denies any calf pain. MD complaint: abscess/boil Onset (ago): day(s) Severity: mild Severity scale (1-10): 3 Quality: dull Pain Consistency: constant Relieving factors: none Exacerbating factors: none Context: none Related Data Previous Rx's Medication Instructions Recorded cyclobenzaprine 10 mg tablet 10 mg PO TID PRN #14 tab 05/08/20 ibuprofen 600 mg tablet 600 mg PO Q6H PRN #30 tab 05/08/20 lidocaine 4 % topical patch 1 patch TOPICAL DAILY PRN #10 ea 05/08/20 ondansetron 4 mg disintegrating 4 mg PO Q8H PRN #20 tab 05/08/20 tablet azithromycin 250 mg tablet See Rx Instructions .ROUTE 05/27/21 .COMPLEX #6 tab benzonatate 100 mg capsule 100 mg PO Q6H PRN #14 cap 05/27/21 prednisone 20 mg tablet 40 mg PO DAILY 5 Days #10 tab 05/27/21 albuterol sulfate 90 mcg/actuation 2 puff INHALATION Q4-6H PRN #8.5 g 08/03/21 aerosol inhaler (ProAir HFA) cephalexin 500 mg capsule 500 mg PO Q6H 7 Days #28 cap 08/15/21 sulfamethoxazole 800 1 tab PO BID 7 Days #14 tab 08/15/21 mg-trimethoprim 160 mg tablet (Bactrim DS) Allergies Allergy/AdvReac Type Severity Reaction Status Date / Time Penicillins [PENICILLINS] Allergy Unknown SWELLING Verified 08/03/21 21:41 AND RASH PEANUT BUTTER Allergy Unknown HIVES Uncoded 02/15/20 17:25 SEAFOOD Allergy Unknown SWELLING Uncoded 02/15/20 17:25 AND RASH Review of Systems Constitutional: Constitutional: Reports no additional constitutional complaints, Denies chills, Denies fever(s) and Denies night sweats Eyes: Eyes: Reports no additional eye complaints, Denies blurry vision, Denies change in vision, Denies diplopia, Denies eye discharge, Denies loss of vision and Denies eye pain ENT: Denies dizziness Cardiovascular: Cardiovascular: Reports no additional cardiovascular complaints, Denies chest pain, Denies lightheadedness, Denies Loss of Consciousness and Denies dyspnea Respiratory: Respiratory: Reports no additional respiratory complaints and Denies dyspnea Gastrointestinal: Gastrointestinal: Reports no additional gastrointestinal complaints, Denies abdominal pain, Denies melena, Denies hematochezia, Denies change in bowel habits and Denies change in stool character Genitourinary: Genitourinary: Reports no additional male genitourinary complaints, Denies hematuria, Denies oliguria, Denies difficulty urinating, D enies dysuria, Denies urinary frequency, Denies urinary hesitancy, Denies urinary incontinence and Denies urinary urgency Musculoskeletal: Musculoskeletal: Reports no additional musculoskeletal complaints, Denies numbness and Denies tingling Integumentary/Breasts: Comments: left lower leg wound Neurologic: Denies dizziness, Denies loss of vision, Denies numbness and Denies tingling Psychiatric: Psychiatric: Reports no additional psychiatric complaints Endocrine: Endocrine: Reports no additional endocrine complaints Hematologic/Lymphatic: Hematologic/Lymphatic: Reports no additional hematologic/lymphatic complaints Allergic/Immunologic: Allergic/Immunologic: Reports no additional allergic/immunologic complaints [facility] Past Medical History Attestation statement: The following information was validated with the patient. Source: old records reviewed Medical History Asthma Social History Social History Substance Use Type: Marijuana Advance Directives: No Advance Directives Information Provided: No Physical Exam Vital Signs: Vital Signs: Last Vital Signs Temp 98.7 F 08/15/21 18:33 Pulse 90 08/15/21 18:33 Resp 16 08/15/21 18:33 BP 133/75 08/15/21 18:33 Pulse Ox 98 08/15/21 18:33 BMI result Body Mass Index 54.7 Const: General: cooperative, no acute distress, alert and awake Nutritional Appearance: well nourished Orientation/consciousness: patient oriented x3 Limitations: no limitations HENMT: Head: Yes normal to inspection and Yes atraumatic Ears: hearing grossly normal bilaterally and external ears normal General nose exam: Normal external nose present, no nasal discharge noted and no epistaxis Face and sinus: Yes normal facial exam, No abrasion and No laceration Mouth: Normal oral and palatal mucosa present, no drooling and no muffled voice Eyes: General: appearance normal, both eyes and all related structures Periorbital: periorbital findings normal Eyelids: Yes eyelids normal Conjunctivae: conjunctivae normal Pupils: Equal, round and reactive pupils present EOM: EOMs intact bilaterally Neck: Neck: Yes normal visual inspection, Yes full ROM and Yes no lymphadenopathy Chest: Chest palpation & inspection: normal inspection of the chest Resp: Effort & Inspection: normal respiratory effort and able to speak in complete sentences Auscultation: clear to auscultation bilaterally Cardio: Rate: regular rate Rhythm: regular rhythm GI: Inspection: Yes normal to inspection Skin: Other: ulcer type lesion present to the anterior aspect of the left lower leg with surrounding erythema but no warmth or induration, no streaking erythema up or down the leg Neuro: General: patient oriented x3 and moves all extremities Cranial nerves: Yes Equal, round and reactive pupils present Cognition (Neuro): normal cognition Motor exam (neuro): 5/5 motor strength present throughout Sensory Exam: Normal double simultaneous stimulation for sensation Coordination: [id number] test normal Extrem: General: Yes normal to inspection, Yes full ROM and Yes capillary refill normal Psych: Appearance: grossly normal Mental Status: mental status grossly normal Affect: normal affect Attitude: cooperative Thought process: Normal thought process present Thought content: Normal thought content present Insight: Good insight present (Psych) MDM - Skin/Abscess/Foreign Bdy MDM Narrative Medical decision making narrative: Patient is a 30 year old male presenting to the emergency department today with left lower leg cellulitis. Patient's physical exam showed an ulcerated area to the left lower leg consistent with a left lower leg cellulitis. I interpreted the patient's left lower leg x-ray showed as having no acute process however, the radiologists read is still pending at this time. I explained my physical exa m findings to the patient. I answered all questions asked by the patient. I stressed the importance of the patient taking his medication as prescribed. I stressed the importance of the patient following up with his primary care provider and with wound care, as soon as possible. I stressed the importance of the patient returning to the emergency department immediately if his symptoms were to worsen or if he were to develop any dizziness, shortness of breath, difficulty breathing, chest pain, blurry vision, loss of vision, nausea, vomiting, abdominal pain, fever, chills, back pain, or any other complaints. Patient verbalized agreement and understanding with this treatment plan and discharge. Differential Diagnosis Differential diagnosis: Likely abscess of skin or subcutaneous tissue and cellulitis Medical Records Attestation: I reviewed the patient's medical records. Imaging Data Left tibia and fibula x-ray: Attestation: I personally reviewed and interpreted this imaging study as follows: My impression: No acute process. Discharge Plan Discharge Clinical Impression: Cellulitis, Abscess of skin or subcutaneous tissue Patient Disposition: Home, Self-Care Instructions: Cellulitis (ED) Additional Instructions: Call to discuss finding and establishing with a primary care provider. Call the provided wound care provider seb to set an appointment up, as soon as possible. Return to the emergency department immediately if your symptoms worsen or if you develop any dizziness, shortness of breath, difficulty breathing, chest pain, blurry vision, loss of vision, nausea, vomiting, abdominal pain, fever, chills, back pain, or any other complaints. Prescriptions: New cephalexin 500 mg capsule 500 mg PO Q6H 7 Days Qty: 28 0RF sulfamethoxazole-trimethoprim [Bactrim DS] 800-160 mg tablet 1 tab PO BID 7 Days Qty: 14 0RF No Action cyclobenzaprine 10 mg tablet 10 mg PO TID PRN (Reason: muscle spasm) Qty: 14 0RF lidocaine 4 % adhesive patch,medicated 1 patch topical DAILY PRN (Reason: pain) Qty: 10 0RF Rx Instructions: may leave on for up to 12 hrs ibuprofen 600 mg tablet 600 mg PO Q6H PRN (Reason: pain) Qty: 30 0RF ondansetron 4 mg tablet,disintegrating 4 mg PO Q8H PRN (Reason: nausea and vomiting) Qty: 20 0RF azithromycin 250 mg tablet See Rx Instructions .ROUTE .COMPLEX Qty: 6 0RF Rx Instructions: For 250 mg dose pack: take 500 mg today (day 1), then 250 mg for 4 days (days 2-5) prednisone 20 mg tablet 40 mg PO DAILY 5 Days Qty: 10 0RF benzonatate 100 mg capsule 100 mg PO Q6H PRN (Reason: cough) Qty: 14 0RF albuterol sulfate [ProAir HFA] 90 mcg/actuation HFA aerosol inhaler 2 puff inhalation Q4-6H PRN (Reason: Wheezing) Qty: 8.5 0RF Referrals: Physician,None [Primary Care Provider] - 2 days (Follow up with your primary care provider. ) Leslye Davis MD [Physician] - 08/18/21 (Call first thing Wednesday morning to schedule an appointment. ) Print Language: [place]i
[2021-08-15 18:33] VITALS: BP 133/75; PULSE 90; RESP 16; TEMP 37.1; O2SAT 98
== END 2021-08-15 20:06 | disposition home or self-care (01) ==
PROVIDERS: Emergency Provider Emergency Medicine
DX: L02.416 Cutaneous abscess of left lower limb (principal); L03.116 Cellulitis of left lower limb
CPT/HCPCS: 73590; 99283; 99284

== ENCOUNTER 2021-12-24 08:44 | Emergency (ER) | payer MEDICAID, SELFPAY ==
[2021-12-24 09:12] VITALS: BP 122/61; PULSE 84; RESP 18; TEMP 36.9; O2SAT 97; BMI 56.3
--- NOTE | 2021-12-24 10:41 | ED.BACK ---
HPI - Back Pain/Injury General Chief Complaint: Back Pain/Injury Stated Complaint: BACK PAIN Time Seen by Provider: 12/24/21 10:33 Source: patient Mode of arrival: ambulatory Limitations: no limitations History of Present Illness HPI Narrative: Patient presents emergency department for evaluation of bilateral lower back pain. Onset of pain was 2 weeks ago. States he is unaware of any precipitating or provoking injury. The pain does not radiate. Pain is made worse by certain movements and bending forward. Has tried Tylenol without relief. Denies recent precipitating injury, fevers, chills, burning with micturition, urinary frequency/urgency/hesitancy, bladder or bowel dysfunction, numbness or tingling of the perineum or bilateral legs. Denies any recent surgical procedures, any known immune compromising conditions, personal history of cancer, or IV drug usage. MD elicited complaint: back pain Related Data Previous Rx's Medication Instructions Recorded cyclobenzaprine 10 mg tablet 10 mg PO TID PRN muscle spasm #14 05/08/20 tabs ibuprofen 600 mg tablet 600 mg PO Q6H PRN pain #30 tabs 05/08/20 lidocaine 4 % topical patch 1 patch topical DAILY PRN pain #10 05/08/20 ea ondansetron 4 mg disintegrating 4 mg PO Q8H PRN nausea and 05/08/20 tablet vomiting #20 tabs azithromycin 250 mg tablet See Rx Instructions PO .COMPLEX #6 05/27/21 tabs benzonatate 100 mg capsule 100 mg PO Q6H PRN cough #14 caps 05/27/21 prednisone 20 mg tablet 40 mg PO DAILY 5 days #10 tabs 05/27/21 albuterol sulfate 90 mcg/actuation 2 puff inhalation Q4-6H PRN 08/03/21 aerosol inhaler (ProAir HFA) Wheezing #8.5 grams cephalexin 500 mg capsule 500 mg PO Q6H 7 days #28 caps 08/15/21 sulfamethoxazole 800 1 tab PO BID 7 days #14 tabs 08/15/21 mg-trimethoprim 160 mg tablet (Bactrim DS) cyclobenzaprine 10 mg tablet 10 mg PO BEDTIME PRN muscle spasm 12/24/21 #10 tabs naproxen 500 mg tablet 500 mg PO BID PRN pain 7 days #14 12/24/21 tabs Allergies Allergy/AdvReac Type Severity Reaction Status Date / Time Penicillins [PENICILLINS] Allergy Unknown SWELLING Verified 08/03/21 21:41 AND RASH PEANUT BUTTER Allergy Unknown HIVES Uncoded 02/15/20 17:25 SEAFOOD Allergy Unknown SWELLING Uncoded 02/15/20 17:25 AND RASH Review of Systems Review of Systems: Constitutional: No weight loss, fever, chills, weakness or fatigue. Skin: No rash or itching. Cardiovascular: No chest pain, chest pressure or chest discomfort. No palpitations or pedal edema. Respiratory: No shortness of breath, cough or sputum production. Gastrointestinal: No nausea, vomiting or diarrhea. No abdominal pain or blood in stool. Genitourinary: No burning micturition. No urinary frequency or incontinence. Neurologic: No headache, dizziness, syncope, unilateral weakness, ataxia, numbness or tingling in the extremities. No change in bowel or bladder control. Musculoskeletal: + Back pain as noted in HPI. No joint pain or stiffness. Hematologic: No bleeding or bruising. Lymphatics: No enlarged lymph nodes. Psychiatric:No depression or anxiety. Endocrine: No polyuria or polydipsia. Yes all other systems are reviewed and are negative [facility] Past Medical History Attestation statement: The following information was validated with the patient. Source: old records reviewed Medical History Asthma Social History Social History Substance Use Type: Marijuana Advance Directives: No Advance Directives Information Provided: No Physical Exam Vital Signs: Vital Signs: Last Vital Signs Temp 98.4 F 12/24/21 09:12 Pulse 84 12/24/21 09:12 Resp 18 12/24/21 09:12 BP 122/61 12/24/21 09:12 Pulse Ox 97 12/24/21 09:12 O2 Del Method 12/24/21 09:12 BMI result Body Mass Index 56.3 Vital signs have been reviewed as normal and appeared to be correct. Blood pressure normal.? Heart rate normal.? Respiration rate normal. Temperature normal.? Oxygen saturation normal. Appearance: Alert.?Oriented to person, place and time. No acute distress.?Normal affect. Eyes: Pupils equal, round and reactive to light.? ENT: Pharynx normal.?? Neck: Normal inspection.? Neck supple.?? CVS: Heart sounds normal. Normal heart rate and rhythm.? Pulses normal; bilateral radial pulses 2+, bilateral posterior tibial/dorsalis pedis pulses 2+.? Respiratory: No respiratory distress.? Lung sounds clear to auscultation bilaterally?? Abdomen: Soft and non-tender. Normoactive bowel sounds. No pulsatile mass. No CVA tenderness?? Skin: Skin warm and dry.? Normal skin color.? Normal skin turgor.?? Extremities: No lower extremity edema.? No calf ttp? Back: + mild paraspinal muscular tenderness from lumbar region to coccyx. No CVA tenderness. No midline spinal tenderness, step-off's, or deformity. Full ROM intact in bilateral lower extremities. Straight leg test positive on right at 45 degrees; Straight leg test positive on left at 45 degrees. No rashes, lesions, areas of induration or fluctuance, or signs of infection noted., Neuro: Moves all extremities spontaneously. 5/5 strength in hip extension/flexion, abduction, adduction. Sensation to light touch intact bilaterally. Patellar and Achilles reflex 2+ bilaterally. No ataxia, gait normal and steady.. No focal neuro deficits. Course Course Course Narrative: Patient is a 31-year-old male with a past medical history of asthma and obesity presents emergency department for evaluation of bilateral lower back pain, atraumatic. He is overall well appearing, vital signs are stable. Urinalysis reveals trace leuk esterase, patient without urinary symptoms do not suspect urinary tract infection at this time., patient received Toradol IM while in the emergency department, with improvement in his symptoms. Pain is most consistent with muscular pain, although cannot completely exclude herniated disc. On neurological exam there are no deficits. Not consistent with spinal fracture, spinal infection, epidural abscess, AAA, epidural abscess, or dissection. No high risk past medical history including incontinence, fever, immunosuppression, recent surgery or lumbar puncture, coagulopathy, significant trauma, recent unintentional weight loss, pulsatile mass, history of cancer, history of TB, history of IV drug use that would warrant MRI or CT. Not consistent with pyelonephritis, urinary tract infection, renal calculi, appendicitis, diverticulitis. On exam no concern for cauda equina syndrome. No imaging is currently indicated at this time. Plan for discharge home with new prescription for naproxen, cyclobenzaprine to use as needed at night, discussed that this may make him drowsy he should not drive or work while taking that medication, and follow-up with primary care provider, worsening signs and symptoms to return back to the emergency department for, and patient agreed with plan, ambulatory at the time of discharge, discharged in stable condition. MDM - Back Pain/Injury Medical Records Attestation: I reviewed the patient's medical records. Lab Data Attestation: I reviewed the patient's lab results. Labs: Lab Results 12/24/21 Range/Units 11:26 Urine Color YELLOW Urine Appearance CLEAR Urine pH 6.0 (5.0-8.0) Ur Specific Shafer 1.025 (1.005-1.025) Urine Protein NEG (NEG-TRACE) MG/DL Urine Glucose (UA) NEG (NEG) MG/DL Urine Ketones NEG (NEG) MG/DL Urine Blood NEG (NEG) Urine Nitrite NEG (NEG) Ur Leukocyte Esterase TRACE H (NEG) Urine RBC 0-2 (0) /HPF Urine WBC 1-4 (0-4) /HPF Ur Squamous Epith Cells TRACE /LPF Urine Bacteria NONE /LPF Discharge Plan Discharge Clinical Impression: Strain of lumbar region Patient Disposition: Home, Self-Care Instructions: Low Back Strain (ED), Lower Back Exercises (ED) Additional Instructions: As we discussed the pain medialized back are more likely due to a strain of the muscles in this area. He should engage in gentle stretching and regular exercise, as well as considering weight loss which may help to improve your symptoms. You have been given a new prescription for naproxen to use as needed for pain, do not take additional ibuprofen/Motrin, Aleve, or aspirin while taking this medication. Additionally a been given a new prescription for cyclobenzaprine to be used as needed at night, this may make you drowsy, he should not drive, work, or drink alcohol while taking this medication. Please follow-up with your primary care provider within 5 days. You may return to emergency department with any new or worsening symptoms or concerns. Prescriptions: New naproxen 500 mg tablet 500 mg PO BID PRN (Reason: pain) 7 Days Qty: 14 0RF cyclobenzaprine 10 mg tablet 10 mg PO BEDTIME PRN (Reason: muscle spasm) Qty: 10 0RF No Action cyclobenzaprine 10 mg tablet 10 mg PO TID PRN (Reason: muscle spasm) Qty: 14 0RF lidocaine 4 % adhesive patch,medicated 1 patch topical DAILY PRN (Reason: pain) Qty: 10 0RF Rx Instructions: may leave on for up to 12 hrs ibuprofen 600 mg tablet 600 mg PO Q6H PRN (Reason: pain) Qty: 30 0RF ondansetron 4 mg tablet,disintegrating 4 mg PO Q8H PRN (Reason: nausea and vomiting) Qty: 20 0RF cephalexin 500 mg capsule 500 mg PO Q6H 7 Days Qty: 28 0RF sulfamethoxazole-trimethoprim [Bactrim DS] 800-160 mg tablet 1 tab PO BID 7 Days Qty: 14 0RF azithromycin 250 mg tablet See Rx Instructions .ROUTE .COMPLEX Qty: 6 0RF Rx Instructions: For 250 mg dose pack: take 500 mg today (day 1), then 250 mg for 4 days (days 2-5) prednisone 20 mg tablet 40 mg PO DAILY 5 Days Qty: 10 0RF benzonatate 100 mg capsule 100 mg PO Q6H PRN (Reason: cough) Qty: 14 0RF albuterol sulfate [ProAir HFA] 90 mcg/actuation HFA aerosol inhaler 2 puff inhalation Q4-6H PRN (Reason: Wheezing) Qty: 8.5 0RF Interventions: ED Discharge Assessment Last Done: 12/24/21 13:04 Discharge Date/Time: 12/24/21 13:05
[2021-12-24] MEDS: Ketorolac Tromethamine 60 MG/2 ML VIAL IM (11:28)
[2021-12-24 11:36] LABS: Appearance Urine CLEAR; Color Urine YELLOW; Glucose Urine UA NEG (NEG); Leukocyte Esterase Urine TRACE (NEG); Nitrite Urine NEG (NEG); Specific Gravity - Urine 1.025 (1.005-1.025); Urine Blood NEG (NEG); Urine Ketones NEG (NEG); Urine Protein NEG (NEG-TRACE)
[2021-12-24 11:55] LABS: RBC Urine 0-2 /HPF (0)
[2021-12-24 11:56] LABS: Squamous Epithelial Cell Urine TRACE /LPF
== END 2021-12-24 13:05 | disposition home or self-care (01) ==
PROVIDERS: Nurse Practitioner Family; Emergency Provider Emergency Medicine
DX: S39.012A Strain of muscle, fascia and tendon of lower back, initial encounter (principal); X58.XXXA Exposure to other specified factors, initial encounter; F12.90 Cannabis use, unspecified, uncomplicated; Y93.9 Activity, unspecified; Y92.9 Unspecified place or not applicable; Y99.9 Unspecified external cause status
CPT/HCPCS: 81001; 96372; 99283; 99284; J1885

== ENCOUNTER 2021-12-26 13:42 | Emergency (ER) | payer MEDICAID, SELFPAY ==
--- NOTE | ~2021-12-26 | XR_ITS ---
EXAMINATION: XR CHEST CLINICAL INFORMATION: Cough and shortness of breath. COMPARISON: Chest radiograph 08/03/2021. TECHNIQUE: Frontal view of the chest was obtained. FINDINGS: Stable appearance of the cardiomediastinal silhouette. Increased interstitial markings. No focal airspace opacity, pleural effusion or pneumothorax. No acute osseous abnormalities. XR/XR chest 1V IMPRESSION: Increased interstitial prominence, nonspecific, could be seen acutely in the setting of asthma, reactive airway disease or atypical viral infections.
[2021-12-26 14:18] VITALS: BP 123/71; PULSE 95; RESP 18; TEMP 37.2; O2SAT 96; BMI 56.3
[2021-12-26 14:39] LABS: MANUAL DIFF FLAG NO
[2021-12-26 14:42] LABS: Basophils Percent Auto 0.5 % (0-2); Eosinophils Absolute Auto 0.4 X10*3/uL (0.0-0.4); Eosinophils Percent Auto 4.8 % (0-4); Hematocrit 40.3 % (42.0-52.0); Hemoglobin 13.1 g/dl (14.0-18.0); Imm Gran Abs Auto 0.03 X10*3/uL (0.00-0.03); Imm Gran Pct Auto 0.4 % (0.0-0.4); Lymphocytes Absolute Auto 1.5 X10*3/uL (1.2-4.9); Lymphocytes Percent Auto 20.7 % (20-40); Mean Corpuscular HGB Conc 32.5 g/dl (31.0-36.0); Mean Corpuscular Hemoglobin 28.4 pg (27.0-33.0); Mean Corpuscular Volume 87.2 fL (80.0-98.0); Monocytes Absolute Auto 0.7 X10*3/uL (0.1-1.2); Monocytes Percent Auto 9.8 % (2-11); Neutrophils Absolute Auto 4.7 x10*3/uL (2.0-8.3); Neutrophils Percent Auto 63.8 % (45-73); Platelet Count 203 X10*3/uL (160-400); Red Blood Count 4.62 X10*6/uL (4.60-5.80); Red Cell Distribution Width 14.2 % (11.0-16.0); White Blood Count 7.4 X10*3/uL (4.8-10.8)
[2021-12-26 14:59] LABS: COVID-19 Test Negative (Negative); IDNOW Serial# 16C4AD1C
[2021-12-26 15:09] LABS: Alanine Aminotransferase 39 U/L (0-40); Alkaline Phosphatase 66 U/L (39-117); Anion Gap 15 (12-20); Aspartate Amino Transferase 26 U/L (5-37); Bilirubin Total 0.8 mg/dL (0.0-1.0); Blood Urea Nitrogen 8 mg/dL (9-16); Calcium 9.1 mg/dL (8.4-10.2); Carbon Dioxide 27 mmol/L (22-29); Chloride 106 mmol/L (96-108); Creatinine Clr Calc Pharmacy 167.2; Estimated Glomerular Filt Rate > 60; Glucose Random 111 mg/dL (60-115); Potassium 4.5 mmol/L (3.3-5.1); Sodium 143 mmol/L (135-145); Total Protein 7.5 g/dL (6.5-8.0)
--- NOTE | 2021-12-26 18:17 | ED_ITS ---
HPI - SOB/Dyspnea General Chief Complaint: Dyspnea Stated Complaint: asthma/SOB Time Seen by Provider: 12/26/21 18:00 Source: patient Mode of arrival: ambulatory Limitations: no limitations History of Present Illness HPI Narrative: Patient comes to the emergency room complaining of asthma exacerbation. Patient states that he ran out of his albuterol inhaler couple of days ago. Patient states that usually he does well with his asthma pump. However, after he ran out, he started having increased wheezing, shortness of breath. Patient denies chest pain. Patient denies any recent URI infections. Related Data Previous Rx's Medication Instructions Recorded cyclobenzaprine 10 mg tablet 10 mg PO TID PRN muscle spasm #14 05/08/20 tabs ibuprofen 600 mg tablet 600 mg PO Q6H PRN pain #30 tabs 05/08/20 lidocaine 4 % topical patch 1 patch topical DAILY PRN pain #10 05/08/20 ea ondansetron 4 mg disintegrating 4 mg PO Q8H PRN nausea and 05/08/20 tablet vomiting #20 tabs azithromycin 250 mg tablet See Rx Instructions PO .COMPLEX #6 05/27/21 tabs benzonatate 100 mg capsule 100 mg PO Q6H PRN cough #14 caps 05/27/21 prednisone 20 mg tablet 40 mg PO DAILY 5 days #10 tabs 05/27/21 albuterol sulfate 90 mcg/actuation 2 puff inhalation Q4-6H PRN 08/03/21 aerosol inhaler (ProAir HFA) Wheezing #8.5 grams cephalexin 500 mg capsule 500 mg PO Q6H 7 days #28 caps 08/15/21 sulfamethoxazole 800 1 tab PO BID 7 days #14 tabs 08/15/21 mg-trimethoprim 160 mg tablet (Bactrim DS) cyclobenzaprine 10 mg tablet 10 mg PO BEDTIME PRN muscle spasm 12/24/21 #10 tabs naproxen 500 mg tablet 500 mg PO BID PRN pain 7 days #14 12/24/21 tabs albuterol sulfate 90 mcg/actuation 2 puff inhalation Q4-6H PRN 12/26/21 aerosol inhaler shortness of breath or wheezing #8.5 grams prednisone 50 mg tablet 50 mg PO DAILY #4 tabs 12/26/21 Allergies Allergy/AdvReac Type Severity Reaction Status Date / Time Penicillins [PENICILLINS] Allergy Unknown SWELLING Verified 08/03/21 21:41 AND RASH PEANUT BUTTER Allergy Unknown HIVES Uncoded 02/15/20 17:25 SEAFOOD Allergy Unknown SWELLING Uncoded 02/15/20 17:25 AND RASH Review of Systems Review of Systems: Constitutional : No Weight loss, No Fever, No Chills, No Night Sweats, No Fatigue, No Malaise ENT/Mouth : No Hearing loss, No Ear Pain, No Nasal Congestion, No Sinus Pain, No Hoarseness, No sore throat, No Rhinorrhea, No Swallowing Difficulty Eyes: No Eye Pain, No Swelling, No Redness, No Foreign Body, No Discharge, gradual decrease patient in the right eye/haziness Cardiovascular : No Chest Pain, No SOB, No Dyspnea on Exertion, No Orthopnea, No Edema, No Palpitations Respiratory : No Cough, No Sputum, No Wheezing, No Smoke Exposure, No Dyspnea Gastrointestinal : No Nausea, No Vomiting, No Diarrhea, No Constipation, No abdominal Pain, No Hematochezia, No Melena Genitourinary : no irregular bleeding, No Dysuria, No Urinary Frequency, No Hematuria, No Urinary Incontinence, No Urgency, No Flank Pain, No Urinary Flow Changes, No Hesitancy Musculoskeletal : No joint pain, No Myalgias, No Joint Swelling Skin : No Skin Lesions, No rash Neuro : No Weakness, No Numbness, No Paresthesias, No Loss of Consciousness, No Dizziness, No Headache Psych : No Anxiety/Panic, No Depression, No SI/HI/AH/VH, No Social Issues, Heme/Lymph: No Bruising, No Bleeding,No Lymphadenopathy Endocrine : No Polyuria, No Polydipsia, No Temperature Intolerance [facility] Past Medical History Medical History Asthma Social History Social History Substance Use Type: Marijuana Advance Directives: No Advance Directives Information Provided: No Physical Exam Vital Signs: Vital Signs: Last Vital Signs Temp 98.9 F 12/26/21 14:18 Pulse 95 12/26/21 14:18 Resp 18 12/26/21 14:18 BP 123/71 12/26/21 14:18 Pulse Ox 96 12/26/21 14:18 O2 Del Method 12/26/21 14:18 BMI result Body Mass Index 56.3 Const: Other: Appearance: Alert. Oriented X3. No acute distress. Eyes: Pupils equal. Patient has a haziness over the cornea on the right eye, right in the middle. ENT: Pharynx normal. Neck: Normal inspection. Neck supple. No lymph nodes noted. No crepitus CVS: Normal heart rate and rhythm. Pulses normal. Normal S1 and S2 Respiratory: No respiratory distress. Very mild occasional wheezing, good air movement Abdomen: Soft and nontender. No rigidity. No distention. Skin: Skin warm and dry. Normal skin color. Normal skin turgor. Extremities: No lower extremity edema. No Lacerations. No Rash Neuro: Oriented X 3. No motor deficit. No sensory deficit. Moving all extremities. No slurred speech. CN 2 through 12 grossly intact Psych: calm, cooperative, normal affect Course Course Course Narrative: Asthma: Patient has mild symptoms, oxygen saturation 98% on room air. Patient was given 1 dose of albuterol neb in the emergency room and p.o. prednisone. 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 Patient states for the last few months he has noticed that his vision is blurry on the right eye, has not seek medical attention. I urged the patient to follow-up promptly with Ophthalmology. MDM - SOB/Dyspnea Lab Data Result diagrams: 12/26/21 14:35 12/26/21 14:35 Labs: Lab Results 12/26/21 12/26/21 12/26/21 Range/Units 14:35 14:35 14:35 WBC 7.4 (4.8-10.8) X10*3/uL RBC 4.62 (4.60-5.80) X10*6/uL Hgb 13.1 L (14.0-18.0) g/dl Hct 40.3 L (42.0-52.0) % MCV 87.2 (80.0-98.0) fL MCH 28.4 (27.0-33.0) pg MCHC 32.5 (31.0-36.0) g/dl RDW 14.2 (11.0-16.0) % Plt Count 203 (160-400) X10*3/uL MPV 10.0 (9.4-12.4) fL Immature Gran % (Auto) 0.4 (0.0-0.4) % Neut % (Auto) 63.8 (45-73) % Lymph % (Auto) 20.7 (20-40) % [place] % (Auto) 9.8 (2-11) % Eos % (Auto) 4.8 H (0-4) % Baso % (Auto) 0.5 (0-2) % Lymph # (Auto) 1.5 (1.2-4.9) X10*3/uL [place] # (Auto) 0.7 (0.1-1.2) X10*3/uL Eos # (Auto) 0.4 (0.0-0.4) X10*3/uL Baso # (Auto) 0.0 (0.0-0.2) X10*3/uL Abs Immat Gran (auto) 0.03 (0.00-0.03) X10*3/uL Absolute Neuts (auto) 4.7 (2.0-8.3) x10*3/uL Absolute Nucleated RBC 0.000 (0.0-0.012) X10*3/uL Nucleated RBC % (auto) 0.0 (0.0-0.2) /100WBC Sodium 143 (135-145) mmol/L Potassium 4.5 (3.3-5.1) mmol/L Chloride 106 (96-108) mmol/L Carbon Dioxide 27 (22-29) mmol/L Anion Gap 15 (12-20) BUN 8 L (9-16) mg/dL Creatinine 0.95 (0.5-1.4) mg/dL Estim Creat Clear Calc 167.2 Estimated GFR > 60 Random Glucose 111 (60-115) mg/dL Calcium 9.1 D (8.4-10.2) mg/dL Total Bilirubin 0.8 (0.0-1.0) mg/dL AST 26 (5-37) U/L ALT 39 (0-40) U/L Alkaline Phosphatase 66 (39-117) U/L Total Protein 7.5 (6.5-8.0) g/dL Albumin 4.0 (3.5-5.0) g/dL COVID-19 (MONIKA) Negative (Negative) COVID-19 Clin Com See Note Discharge Plan Discharge Clinical Impression: Asthma with exacerbation, Corneal abnormality Patient Disposition: Home, Self-Care Instructions: Asthma (ED) Additional Instructions: Please call Ophthalmology tomorrow to schedule an appointment. Please follow-up with your primary care physician tomorrow. If you have any worsening or new symptoms, please return to the emergency room or call 911 Prescriptions: New albuterol sulfate 90 mcg/actuation HFA aerosol inhaler 2 puff inhalation Q4-6H PRN (Reason: shortness of breath or wheezing) Qty: 8.5 1RF prednisone 50 mg tablet 50 mg PO DAILY Qty: 4 0RF No Action cyclobenzaprine 10 mg tablet 10 mg PO TID PRN (Reason: muscle spasm) Qty: 14 0RF lidocaine 4 % adhesive patch,medicated 1 patch topical DAILY PRN (Reason: pain) Qty: 10 0RF Rx Instructions: may leave on for up to 12 hrs ibuprofen 600 mg tablet 600 mg PO Q6H PRN (Reason: pain) Qty: 30 0RF ondansetron 4 mg tablet,disintegrating 4 mg PO Q8H PRN (Reason: nausea and vomiting) Qty: 20 0RF cephalexin 500 mg capsule 500 mg PO Q6H 7 Days Qty: 28 0RF sulfamethoxazole-trimethoprim [Bactrim DS] 800-160 mg tablet 1 tab PO BID 7 Days Qty: 14 0RF azithromycin 250 mg tablet See Rx Instructions .ROUTE .COMPLEX Qty: 6 0RF Rx Instructions: For 250 mg dose pack: take 500 mg today (day 1), then 250 mg for 4 days (days 2-5) prednisone 20 mg tablet 40 mg PO DAILY 5 Days Qty: 10 0RF benzonatate 100 mg capsule 100 mg PO Q6H PRN (Reason: cough) Qty: 14 0RF albuterol sulfate [ProAir HFA] 90 mcg/actuation HFA aerosol inhaler 2 puff inhalation Q4-6H PRN (Reason: Wheezing) Qty: 8.5 0RF naproxen 500 mg tablet 500 mg PO BID PRN (Reason: pain) 7 Days Qty: 14 0RF cyclobenzaprine 10 mg tablet 10 mg PO BEDTIME PRN (Reason: muscle spasm) Qty: 10 0RF Referrals: Timothy Inman [Physician] - 1 day (Right Corneal haziness, history of corneal transplant on the left)
[2021-12-26 18:26] VITALS: PULSE 81; RESP 18; O2SAT 78
[2021-12-26] MEDS: Albuterol Sulfate (0.083%) 2.5 MG/3 ML VIAL.NEB INHALE (18:26)
[2021-12-26] MEDS: predniSONE 10 MG TABLET 50 MG PO (18:30)
== END 2021-12-26 18:38 | disposition home or self-care (01) ==
PROVIDERS: Emergency Provider Emergency Medicine
DX: J45.901 Unspecified asthma with (acute) exacerbation (principal); Q13.4 Other congenital corneal malformations; Z20.822 Contact with and (suspected) exposure to COVID-19; F12.90 Cannabis use, unspecified, uncomplicated
CPT/HCPCS: 36415; 71045; 80053; 85025; 87635; 94640; 99283; 99284